=== PATIENT | female | born 1960 | race Caucasian/White ===

== ENCOUNTER 2017-05-19 20:05 | Emergency (ER) | payer BC ==
[~2017-05-19] VITALS: Ht 170.2 cm; Wt 72.6 kg
--- NOTE | ~2017-05-19 | EKG ---
[address] [place] [address] ELECTROCARDIOGRAM REPORT Name: ALIYAH LEYVA Room #: [facility]#: [id number] Admission: 05/19/17 Attend Phys: Discharge: 05/19/17 Date of : 64 Report #: [id number] THIS REPORT FOR: //name// [facility] ED Test Date: 2017-05-19 Test Time: 20:25:54 Pat Name: ALIYAH LEYVA Department: Room: Gender: F Spearer: MARCOS : 1960 Requested By: Betsey Townsend Order Number: [id number] MD: Tello Stanton Measurements Intervals [place] Rate: 104 P: 67 NV: 154 QRS: 17 QRSD: 103 T: 45 QT: 351 QTc: 462 Interpretive Statements Sinus tachycardia Artifact in lead(s) Poor R wave progression Compared to ECG 07/26/2016 23:19:58 No significant change was found Electronically Signed On 05-21-2017 8:27:46 CDT by Tello Stanton [email or web address] <ELECTRONICALLY SIGNED> By: Tello Stanton MD, [facility] 05/21/17826 2025 24 Tello Stanton MD, [facility] /EPI
[~2017-05-19 20:05] MED LIST: ATIVAN0.5 M1 PO; BENICAR20 MG PO; CELEBREX 200 M200 MG PO; LASIX 20 MG TAB20 MG PO; LYRICA 75 MG CA75 MG PO; NEXIUM40 MG PO; POTASSIUM20 PO; UNICOMPLEX M TA1 TA1 PO; ZETIA10 MG PO; ZYRTEC10 M2 PO
[2017-05-19 20:51] LABS: ABSOLUTE NEUTROPHILS 4.6 thou/uL (1.4-8.2); BASOPHILS 0.5 % (0.0-2.0); EOSINOPHILS 0.4 % (0.0-3.0); HEMATOCRIT 33.3 % (37.0-47.0); LYMPHOCYTES 34.5 % (24.0-44.0); MCH 29.2 pg (26.0-34.0); MCHC 33.1 g/dL (28.0-37.0); MCV 88.3 fL (80.0-100.0); MONOCYTES 8.7 % (1.0-8.0); PLATELET COUNT 307 thou/uL (150-400); POLYS 55.9 % (36.0-66.0); RBC 3.78 mil/uL (4.20-5.00); RDW 17.1 % (10.5-14.5); WBC 8.2 thou/uL (4.0-11.0)
[2017-05-19 20:56] LABS: MANUAL DIFF NO
[2017-05-19 21:06] LABS: ANION GAP 17 mmol/L (7-16); BUN 19 mg/dL (7-18); CALCIUM 9.8 mg/dL (8.5-10.1); CHLORIDE 95 mmol/L (98-107); CO2 21 mmol/L (21-32); CREATININE 1.2 mg/dL (0.6-1.0); GLUCOSE 87 mg/dL (74-106); POTASSIUM 3.9 mmol/L (3.5-5.1); SODIUM 133 mmol/L (136-145)
[2017-05-19 21:11] LABS: TROPONIN-I < 0.04 ng/mL (<0.04-0.07)
== END 2017-05-19 22:30 | disposition home or self-care (01) ==
LOC: ER 20:05
PROVIDERS: Emergency Medicine
DX: S01.112A Laceration without foreign body of left eyelid and periocular area, initial encounter (principal); F10.129 Alcohol abuse with intoxication, unspecified; I10 Essential (primary) hypertension; M19.90 Unspecified osteoarthritis, unspecified site; Z88.1 Allergy status to other antibiotic agents; Z87.891 Personal history of nicotine dependence; W18.39XA Other fall on same level, initial encounter; Y93.89 Activity, other specified; Y92.090 Kitchen in other non-institutional residence as the place of occurrence of the external cause; Y99.8 Other external cause status